=== PATIENT | female | born 1995 | race Caucasian/White ===

== ENCOUNTER 2016-11-02 18:15 | Outpatient (CLI) | payer MEDICAID ==
[~2016-11-02] VITALS: Ht 165.1 cm; Wt 64.0 kg
[~2016-11-02 18:15] MED LIST: ALBUTEROL-200 PUFFS/ IH; IBU600 MG PO; NOMEDS *; PRENATABS RX1 TAB PO; REGLAN 5MG TABLE5 MG PO; TYLENOL W/CODEI1 TA2 PO; VOLTAREN75 MG PO; ZITHROMAX Z PA250 MG PO; Zofran4 MG PO
[2016-11-02 18:55] VITALS: BP 105/63
[2016-11-02] MEDS ORDERED: PROGESTERONE100 M1 VA (18:59)
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
== END 2016-11-02 21:40 | disposition home or self-care (01) ==
LOC: OB 18:15 → OBOUT 18:15 → OB 18:17 → OBOUT 21:40
DX: O26.92 Pregnancy related conditions, unspecified, second trimester (principal); Z3A.23 23 weeks gestation of pregnancy; R20.0 Anesthesia of skin; M54.5 Low back pain